=== PATIENT | female | born 1975 | race American Indian/Alaskan Native ===

== ENCOUNTER 2017-11-02 11:01 | Emergency (ER) | payer SELFPAY ==
[2017-11-02 13:01] VITALS: BP 150/80
[2017-11-02] MEDS ORDERED: MOTRIN PO ONE (13:41)
[2017-11-02] MEDS ORDERED: ZOFRAN ODT PO ONE (13:41)
[2017-11-02] MEDS ORDERED: TETRACAINE 0.5% ONE (13:47)
[2017-11-02 14:11] LABS: Hematocrit 37.9 % (30.3-42.9); Hemoglobin 12.1 gm/dl (10.1-14.3); Mean Corpuscular HGB Conc 32 % (30-34); Mean Corpuscular Volume 81 fl (79-97); Platelet Count 330 K/mm3 (140-440); Red Blood Count 4.66 M/mm3 (3.65-5.03); Red Cell Distribution Width 13.9 % (13.2-15.2)
[2017-11-02 14:16] LABS: Mean Corpuscular Hemoglobin 26 pg (28-32)
[2017-11-02 14:20] LABS: Bilirubin,Urine NEG (Negative); Blood,Urine LG (Negative); Color,Urine Yellow (Yellow); Mucus,Urine 2+ /HPF; Nitrite,Urine NEG (Negative); Protein,Urine <15 mg/dL mg/dL (Negative); Urobilinogen,Urine < 2.0 mg/dL (<2.0)
[2017-11-02 14:24] LABS: Alanine Aminotransferase 12 units/L (7-56); Albumin 3.9 g/dL (3.9-5); BUN/Creatinine Ratio 20; Blood Urea Nitrogen 12 mg/dL (7-17); Calcium 8.6 mg/dL (8.4-10.2); Hemolysis Index 11; Lipase 15 units/L (13-60)
--- NOTE | 2017-11-02 14:38 | Emergency Department Report ---
- General Chief Complaint: Upper Respiratory Infection Stated Complaint: VOMITING Time Seen by Provider: 11/02/17 13:37 Source: patient Mode of arrival: Ambulatory Limitations: No Limitations - Related Data Previous Rx's Medication Instructions Recorded Last Taken Type Azithromycin [Zithromax Z-YEVGENIY] 250 mg PO DAILY #6 tablet 08/15/14 Unknown Rx Loratadine/Pseudoephedrine 1 tab PO Q12H #20 tablet 08/15/14 Unknown Rx [Claritin-D 12HR] Ondansetron [Zofran] 4 mg PO Q8HR PRN #6 tablet 08/15/14 Unknown Rx Promethazine /Codeine 5 ml PO Q6H PRN #120 ml 08/15/14 Unknown Rx [Phenergan/Codeine 6.25-10 mg/5 ml] predniSONE [Deltasone] 40 mg PO QDAY #10 tab 08/15/14 Unknown Rx Allergies Allergy/AdvReac Type Severity Reaction Status Date / Time No Known Allergies Allergy Unverified 08/15/14 10:10 ED Review of Systems ROS: Stated complaint: VOMITING Other details as noted in HPI ED Past Medical Hx - Past Medical History Previous Medical History?: Yes Hx Headaches / Migraines: Yes - Surgical History Past Surgical History?: No - Social History Smoking Status: Never Smoker Substance Use Type: Alcohol - Medications Home Medications: Home Medications Medication Instructions Recorded Confirmed Last Taken Type Azithromycin [Zithromax Z-YEVGENIY] 250 mg PO DAILY #6 tablet 08/15/14 Unknown Rx Loratadine/Pseudoephedrine 1 tab PO Q12H #20 tablet 08/15/14 Unknown Rx [Claritin-D 12HR] Ondansetron [Zofran] 4 mg PO Q8HR PRN #6 tablet 08/15/14 Unknown Rx Promethazine /Codeine 5 ml PO Q6H PRN #120 ml 08/15/14 Unknown Rx [Phenergan/Codeine 6.25-10 mg/5 ml] predniSONE [Deltasone] 40 mg PO QDAY #10 tab 08/15/14 Unknown Rx ED Physical Exam - General Limitations: No Limitations ED Course Vital Signs 11/02/17 11/02/17 12:58 13:47 Temperature 97.5 F L Pulse Rate 58 L Respiratory 16 16 Rate Blood Pressure 150/80 O2 Sat by Pulse 99 Oximetry ED Medical Decision Making - Lab Data Result diagrams: 11/02/17 13:49 11/02/17 13:49 Critical care attestation.: If time is entered above; I have spent that time in minutes in the direct care of this critically ill patient, excluding procedure time. ED Disposition Condition: Stable Referrals: PRIMARY CARE,MD [Primary Care Provider] - 3-5 Days
[2017-11-02 14:51] LABS: Basophils % (Manual) 0 % (0.0-1.8); Hypochromasia 1+; Ovalocytes Rare; Platelet Estimate Consistent w Auto; Target Cells Few; Total Cells Counted 100
--- NOTE | 2017-11-02 14:52 | Emergency Department Report ---
Chief Complaint: Upper Respiratory Infection Stated Complaint: VOMITING Time Seen by Provider: 11/02/17 13:37 - HPI History of Present Illness: The patient is a 41-year-old female presents for evaluation of abdominal pain. The patient reports mid abdominal pain for the past 2 days, associated with nausea, vomiting, and decreased appetite. She also has expressed some on and off again quality headache. The patient denies fever, head injury, chest pain, dyspnea, cough, syncope, dysuria, hematuria, vaginal discharge, vaginal bleeding , blood in the stool, neck stiffness, vision or hearing changes, smell or taste changes, paresthesias, urine or bowel incontinence or retention, or other focal neurological deficit. - ROS Review of Systems: Constitutional: denies: fever ENT: denies: throat or neck pain Respiratory: denies: cough, shortness of breath Cardiovascular: denies: chest pain Endocrine: denies unexplained weight loss or gain Gastrointestinal: reports: abdominal pain, nausea Genitourinary: denies: dysuria Musculoskeletal: denies: leg swelling Skin: denies: rash Neurological: reports: headache Hematological/Lymphatic: denies: easy bleeding or easy bruising Psych: denies sadness or hopelessness - Exam Vital Signs: Vital Signs 11/02/17 11/02/17 12:58 13:47 Temperature 97.5 F L Pulse Rate 58 L Respiratory 16 16 Rate Blood Pressure 150/80 O2 Sat by Pulse 99 Oximetry Physical Exam: General: well-nourished, well-developed, no acute distress Head: Normocephalic, atraumatic Eyes: normal sclera ENT: Mucous membranes are pink and moist Neck: trachea midline, neck supple, No neck stiffness, no cervical adenopathy Respiratory: Breath sounds equal bilaterally, no wheezing, rales, or rhonchi Cardio: S1 and S2 present, no murmurs, rubs, gallops, capillary refill is brisk Abdomen: Normoactive bowel sounds, soft abdomen, periumbilical and superior tenderness to palpation present, no rigidity, no guarding or rebound tenderness Musc: No pitting edema Skin: No rash Neuro: no facial drooping, normal speech Psych: Normal affect MSE screening note: Focused history and physical exam performed. Due to findings the following was ordered: LFTs, lipase, urinalysis, preg test, CBC, ED Medical Decision Making - Lab Data Result diagrams: 11/02/17 13:49 11/02/17 13:49 ED Disposition for MSE Condition: Stable Referrals: PRIMARY CARE, [Primary Care Provider] - 3-5 Days
--- NOTE | 2017-11-02 14:55 | Emergency Department Report ---
Blank Doc - Documentation Documentation: This patient did not answer when provider went to evaluate and treat. Nurse reported patient left to go get her kids. Chart was given to nurse.
== END 2017-11-02 14:51 ==
LOC: ED 11:01
DX: R10.9 Unspecified abdominal pain (principal); R11.2 Nausea with vomiting, unspecified; R51 Headache
CPT/HCPCS: 36415; 80053; 81001; 83690; 84703; 85007; 85025; 99283; Q0162